=== PATIENT | female | born 1975 | race Caucasian/White ===

== ENCOUNTER 2023-06-29 05:56 | Emergency (ER) | payer MEDICAID ==
[2023-06-29] MEDS ORDERED: cloNIDine 0.1 MG TABLET PO STA (05:59)
[2023-06-29] MEDS ORDERED: BACLOFEN 10 MG TABLET PO SCH (06:00)
--- NOTE | 2023-06-29 06:02 | ED Physician Documentation ---
History of Present Illness - Stated complaint Stated Complaint: GLF - History obtained from History obtained from: Patient, EMS - Additonal information Additional information: 48-year-old female history of opiate use disorder presents by EMS for evaluation after a ground-level fall. Patient is in the rehab center for opiate use and is undergoing monitored withdrawal from opiates. At some point during the night she had a mechanical trip and fall. Per facility policy patient has to be evaluated and so 911 was called. Patient states she thinks she may have hit her head but is not sure. Currently denying any complaints. No blood thinners on JAN. Patient does appear to be withdrawing from opiates Review of Systems Constitutional: denies: Fever, Chills : denies: Dysuria Skin: denies: Rash, Lesions, Abrasion (s) PD PAST MEDICAL HISTORY - Present Medications Home Medications: Ambulatory Orders Medication Instructions Recorded Confirmed Baclofen [Lioresal] 10 mg PO TID PRN #20 tablet 06/29/23 Buprenorphine HCl/Naloxone HCl 1 each SL BID #14 film 06/29/23 [Suboxone 8 mg-2 mg Sl Film] Buprenorphine HCl/Naloxone HCl 1 each SL BID 7 Days #14 film 06/29/23 [Suboxone 8 mg-2 mg Sl Film] Ondansetron Odt [Zofran] 4 mg TL Q6H PRN #15 tablet 06/29/23 cloNIDine [Catapres] 0.1 mg PO BID 7 Days #15 tablet 06/29/23 - Allergies Allergies/Adverse Reactions: Allergies Allergy/AdvReac Type Severity Reaction Status Date / Time No Known Drug Allergies Allergy Verified 06/29/23 06:25 PD ED PE NORMAL - Vitals Vital signs reviewed: Yes - General General: Alert and oriented X 3, Well developed/nourished, Other (appears older than stated age. Agitated) - HEENT HEENT: Atraumatic, PERRL - Neck Neck: Supple, no meningeal sign - Cardiac Cardiac: RRR - Respiratory Respiratory: No respiratory distress, Clear bilaterally - Abdomen Abdomen: Soft, Non tender, Non distended - Derm Derm: Normal color, Warm and dry, No rash - Extremities Extremities: No deformity, No tenderness to palpate, Normal ROM s pain - Neuro Neuro: Alert and oriented X 3, rail washer 2-12 intact, No motor deficit, Normal speech Results - Vitals Vitals: Vital Signs - 24 hr 06/29/23 06/29/23 06/29/23 06:00 06:03 06:47 Temperature 36.4 C L Heart Rate 69 Respiratory 18 18 Rate Blood Pressure 124/110 H 128/109 H O2 Saturation 96 96 96 06/29/23 06/29/23 06/29/23 07:01 10:26 12:07 Temperature 37.3 C Heart Rate 60 Respiratory 16 22 18 Rate Blood Pressure 141/92 H O2 Saturation 98 99 06/29/23 13:10 Temperature 36.7 C Heart Rate 67 Respiratory 22 Rate Blood Pressure 101/87 H O2 Saturation 97 Oxygen O2 Source Room air PD Medical Decision Making - ED course Complexity details: reviewed results, re-evaluated patient, considered differential, d/w patient ED course: GLF with possible head injury. Patient appears agitated, actively withdrawing from opiates. Due to possible altered mental status from substance use will scan brain.Given baclofen and clonidine for opiate withdrawal. Patient has received scan, pending final results. Care of patient signed out to oncoming provider Departure - Departure Disposition: 01 Home, Self Care Clinical Impression: Opiate withdrawal, Fall from slip, trip, or stumble Condition: Stable Follow-Up: [facility] [Provider Group] Prescriptions: cloNIDine [Catapres] 0.1 mg PO BID 7 Days #15 tablet Baclofen [Lioresal] 10 mg PO TID PRN #20 tablet PRN Reason: Spasms Buprenorphine HCl/Naloxone HCl [Suboxone 8 mg-2 mg Sl Film] 1 each SL BID 7 Days #14 film Buprenorphine HCl/Naloxone HCl [Suboxone 8 mg-2 mg Sl Film] 1 each SL BID #14 film Ondansetron Odt [Zofran] 4 mg TL Q6H PRN #15 tablet PRN Reason: Nausea / Vomiting Comments: For your opiate withdrawal symptoms, use Suboxone twice daily and clonidine 0.1 mg twice daily. Add baclofen if needed for muscle spasms and ondansetron if needed for nausea. Follow-up with one of the community health clinics such as [place] or [place] for continuation of your opiate use disorder. Call for appointment and commonly/hopefully can be seen in the next week. I sent your prescriptions to the pharmacy electronically, [facility] in [place]. Forms: PCP List Discharge Date/Time: 06/29/23 13:11
[2023-06-29] MEDS ORDERED: BUPRENORPHINE/NALOXONE 8-2 MG TAB SL STA ×2 (07:36→08:29)
--- NOTE | 2023-06-29 07:38 | ED Physician Documentation ---
ED Addendum - Addendum Addendum: 06/29/23 07:36 The patient had come from detox center because of a fall. There was been some altered mentation so a head CT was done. The report came back showing no acute changes. I met with the patient and she was answering questions appropriately. She was having intermittent moaning. No tremor per se. She states she is feeling some withdrawal symptoms. She had been receiving several medicines at the detox center including Suboxone twice yesterday. We can give a dose of Suboxone 8/2 mg here. Recontacting the detox center to presumably they would have her back for continued treatment. No other apparent injury with good range of motion of extremities and no chest or belly tenderness. Disposition: Discharged in stable condition back to detox center Diagnoses: 1. Opioid/fentanyl use disorder 2. Opioid withdrawal 3. Accidental fall
--- NOTE | 2023-06-29 08:11 | CT Report ---
PROCEDURE: HEAD WO INDICATIONS: GLF/HEAD INJURY/DRUG WITHDRAWAL TECHNIQUE: Noncontrast 4.5 mm thick angled axial sections acquired from the foramen magnum to the vertex. For r adiation dose reduction, the following was used: automated exposure control, adjustment of mA and/or kV according to patient size. COMPARISON: None. FINDINGS: Image quality: Patient motion artifact. CSF spaces: Basal cisterns are patent. No extra-axial fluid collections. Ventricles are normal in size and shape. Brain: No midline shift. No intracranial masses or hemorrhage. Fel[place]-white matter interface is norm al. Skull and face: Calvarium and visualized facial bones are intact, without suspicious lesions. Sinuses: Visualized sinuses and mastoids are clear. IMPRESSION: No acute intracranial pathology Findings are concordant with preliminary interpretation provided by [facility]. Reviewed by: Zachariah Cody MD on 06/29/2023 8:10 AM PDT Approved by: Zachariah Cody MD on 06/29/2023 8:10 AM PDT Station ID: [id number]
[2023-06-29] MEDS ORDERED: ACETAMINOPHEN 325 MG TABLET PO STA (09:04)
[2023-06-29] MEDS ORDERED: KETOROLAC 30 MG/ML VIAL IM STA (09:04)
[2023-06-29] MEDS ORDERED: LORazepam 1 MG TABLET PO STA (09:55)
[2023-06-29 13:16] VITALS: BP 101/87
== END 2023-06-29 13:11 | disposition home or self-care (01) ==
LOC: ED 05:56
DX: F11.23 Opioid dependence with withdrawal (principal); W01.0XXA Fall on same level from slipping, tripping and stumbling without subsequent striking against object, initial encounter; Y92.099 Unspecified place in other non-institutional residence as the place of occurrence of the external cause
CPT/HCPCS: 70450; 96372; 99284; A9270; J8499

== ENCOUNTER 2023-06-29 06:20 | Outpatient (CLI) | payer MEDICAID | END 2023-06-29 23:59 | disposition critical access hospital (66) | LOC: EMS 06:20 | DX: Z03.89 Encounter for observation for other suspected diseases and conditions ruled out (principal) | CPT/HCPCS: A0425; A0429; A0999 ==